=== PATIENT | female | born 1965 | race African-American/Black ===

== ENCOUNTER → 2016-09-01 | Outpatient (CLI) | payer OTHER ==
[~2016-09-01] MED LIST: CEFTRIAXONE 1 GM IV ONE; CEFTRIAXONE 1GM IVPB FOR OMNI 50 ML IV ONE; [UNRECOGNIZED DRUG - OTHER] IV ONE
--- NOTE | 2016-09-02 08:13 | RAD ---
APPROVED REPORT Patient Location: OUT-PATIENT Indications PVD VELOCITY AND DOPPLER WAVEFORM ANALYSIS RIGHT cm/secWaveformSeverity LEFT c m/secWaveformSeverity Ext Iliac Art. 162.0MonophasicExt Iliac Art. 130.0Monophas ic dCFA 174.0MonophasicdCFA 116.0Monophas ic Prof Fem Art. 118.0MonophasicProf Fem Art. 94.0Monophasi c Fem Art Prox. 92.0MonophasicFem Art Prox. 122.0Triphasic Fem Art Mid. 78.0MonophasicFem Art Mid. 205.0Monophasi c Fem Art Dist. 143.0MonophasicFem Art Dist. 117.0Triphasi c Pop Art(AK) 37.0MonophasicPop Art(AK) 49.0Biphasic RECTIFIER OPERATOR Prox. 53.0MonophasicPTA Prox. 99.0Monophasic RECTIFIER OPERATOR Dist. 42.0MonophasicPTA Dist. 65.0Biphasic Per Art Mid. 39.0MonophasicPer Art Mid. 35.0Monophasic FERNANDO Prox. 44.0MonophasicATA Prox. 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 On the left there is velocity acceleration in the distal left superficial femoral arter y stent that was previously placed suggestive of greater than 50% stenosis. 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
== END | disposition home or self-care (01) ==
LOC: US 15:59
PROVIDERS: ATTEND Internal Medicine Cardiovascular Disease
DX: I73.9 Peripheral vascular disease, unspecified (principal)
CPT/HCPCS: 93925; J0690